=== PATIENT | male | born 1955 | race Caucasian/White ===

== ENCOUNTER 2018-09-06 12:33 | Emergency (ER) | payer SELFPAY ==
[~2018-09-06] VITALS: Ht 170.2 cm; Wt 88.6 kg
[2018-09-06 12:48] VITALS: BP 174/101
--- NOTE | 2018-09-06 13:00 | NUR ---
PT AMB TO BED 11
--- NOTE | 2018-09-06 13:10 | NUR ---
PATIENT PRESENTS TO ED WITH pt states he awoke with right sided paresthesia, noted mild facial asymmetry full clear speech, ambulatory with steady gait, equal hand patient flow coordinator/pushes, denies headache, denies n/v---denies injury/trauma . DENIES N/V/D; SKIN IS PINK/WARM/DRY; AAOX4 WITH EVEN AND STEADY GAIT; LUNGS CLEAR BL; HR EVEN AND REGULAR; PT DENIES ANY FEVER, CP, SOB, OR COUGH AT THIS TIME; PATIENT STATES PAIN OF 0/10 AT THIS TIME; VSS; PATIENT POSITIONED FOR COMFORT; HOB ELEVATED; BEDRAILS UP X2; BED DOWN. ER MD MADE AWARE OF PT STATUS.
[2018-09-06 13:34] VITALS: BP 174/101
--- NOTE | 2018-09-06 13:37 | NUR ---
Patient to be transferred to [facility] er. Is being transferred due to . Receiving facility has accepting physician and available space. ER physician has signed transfer form. Patient or responsible alliance party has agreed to transfer and signed form. Patient belongings inventoried and will be sent with patient. Copy of nursing notes, lab reports, EKG, Physicians Orders and X-rays to be sent with patient. Report called to at receiving facility. ambulance service has been called for transfer. ETA is .
--- NOTE | 2018-09-06 13:47 | NUR ---
report given to [facility]
== END 2018-09-06 13:37 | disposition short-term general hospital (02) ==
LOC: MED 12:33 → EDSEX 12:33 → MED 13:37
DX: I63.9 Cerebral infarction, unspecified (principal); I10 Essential (primary) hypertension; H57.02 Anisocoria
CPT/HCPCS: 82948; 93005; 99285